=== PATIENT | male | born 1935 | race Caucasian/White ===

== ENCOUNTER 2017-01-29 21:26 | Inpatient (IN) | payer MEDICARE ==
[2017-01-29] MEDS ORDERED: Haloperidol Lactate 5 mg/mL 1mL Vial IM PRN (21:45)
[2017-01-29] MEDS ORDERED: Haloperidol Lactate 5 mg/mL 1mL Vial ONE (21:56)
[2017-01-29 22:12] LABS: % EOSINOPHILS 1.7 % (0.0-5.0); % LYMPHOCYTES 20.8 % (20.0-50.0); % MONOCYTES 6.9 % (2.0-10.0); % NEUTROPHILS 70.6 % (40.0-80.0); HEMATOCRIT 36.8 % (39.0-49.0); HEMOGLOBIN 12.4 gm/dL (12.6-17.4); MEAN CELL VOLUME 91.7 fl (80-99); MEAN CORPUSCULAR HEMOGLOBIN 30.8 pg (27.0-31.0); MEAN CORPUSCULAR HGB CONC 33.6 pg (28.0-36.0); MEAN PLATELET VOLUME 9.8 fl; NEUTROPHILE ABSOLUTE 6.7 Th/cmm (1.8-8.0); PLATELET COUNT 161 Th/cmm (150-400); RED BLOOD COUNT 4.01 Mil/cmm (3.80-5.80); RED CELL DISTRIBUTION WIDTH 14.9 % (11.5-20.0); WHITE BLOOD COUNT 9.6 Th/cmm (4.8-10.8)
[2017-01-29 22:28] LABS: ALB/GLOB RATIO 1.2 (1.0-1.8); ALKALINE PHOSPHATASE 48 U/L (34-104); ANION GAP 10.9 (7.0-16.0); BILIRUBIN,TOTAL 0.6 mg/dL (0.3-1.0); BUN - UREA NITROGEN 29 mg/dL (7-25); BUN/CREATININE RATIO 22.3; CALCIUM SERUM 9.8 mg/dL (8.6-10.3); CARBON DIOXIDE 20.2 mEq/L (21.0-31.0); CHLORIDE 111 mEq/L (98-107); CREATININE - SERUM 1.3 mg/dL (0.7-1.3); GLUCOSE 96 mg/dL (70-105); POTASSIUM SERUM 4.1 mEq/L (3.5-5.1); SGOT 11 U/L (13-39); SGPT/ALT 6 U/L (7-52); SODIUM SERUM 138 mEq/L (136-145)
[2017-01-29 22:29] LABS: INR 1.2 (0.5-1.4); PROTHROMBIN TIME (TEST) 12.6 SECONDS (9.5-11.5)
[2017-01-29 22:32] LABS: CHOLESTEROL 153 mg/dL (<200); TRIGLYCERIDES 80 mg/dL (<150)
[2017-01-29] MEDS ORDERED: D5-0.45NS 1,000 ML IV SCH (22:44)
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
[2017-01-30] MEDS ORDERED: Haloperidol Lactate 5 mg/mL 1mL Vial IM ONE ×2 (00:30→17:27)
[2017-01-30 01:00] VITALS: BP 133/82
[2017-01-30] MEDS ORDERED: Acetaminophen 500 MG TAB PO PRN ×2 (01:18)
[2017-01-30] MEDS ORDERED: Magnesium Hydroxide (MOM) 30 mL UDC PO PRN (01:18)
[2017-01-30] MEDS ORDERED: ARMODAFINIL PO SCH (09:00)
[2017-01-30] MEDS ORDERED: Non-Formulary Item 1 EA (Potassium Chloride [Potassium Chloride] 1 CAP) PO SCH (09:00)
[2017-01-30] MEDS ORDERED: MEGESTROL ACETATE PO SCH (09:00)
--- NOTE | 2017-01-30 09:17 | Diagnostic Imaging Report ---
Portable chest x-ray Time: 2330 History: Cough Allowing for portable technique the heart size is normal. No focal pulmonary parenchymal processes. No hilar or mediastinal abnormalities. Impression: No acute abnormalities.
[2017-01-30] MEDS: Potassium Chloride 10 mEq ER Tab PO SCH ×2 (09:40→16:34)
[2017-01-30] MEDS: Pantoprazole 40 mg EC Tab PO SCH (09:41)
[2017-01-30] MEDS: Multivitamin Tab PO SCH (09:41)
--- NOTE | 2017-01-30 11:03 | Psychosocial Evaluation ---
DATE OF SERVICE: 01/30/2017 JUSTIFICATION FOR HOSPITALIZATION: [facility], yelling, uncooperative from the nursing facility, unable to be cared for there, agitation, aggressive behaviors, uncontrollable crying. CHIEF COMPLAINT: Decompensation at [facility]. HISTORY OF PRESENT ILLNESS: An 81-year-old male coming in from [facility], agitated, aggressive, uncontrollable crying and striking out behaviors, totally uncooperative with staff. Medications were reviewed. He takes Seroquel, Ativan, BuSpar, trazodone, Remeron. On [id number], the patient is completely refusing interview, not talking to me, uncooperative. PAST PSYCHIATRIC HISTORY: It is unclear. He may have a diagnosis of dementia. MEDICAL HISTORY: Hypertension, CAD, dyslipidemia, and arthritis. FAMILY HISTORY: Unknown. SOCIAL HISTORY: Living at [facility]. Requiring a higher level of care. Nonsmoker, no alcohol, no drugs. MEDICATIONS: Reviewed and as noted. MENTAL STATUS EXAMINATION: Stated age, in bed, under the covers, refusing to talk to me. Speech: Refusing to talk to me. Mood, refusing Affect flat. Thought processes were unclear. Thought content, unclear. Poor insight, poor judgment, poor impulse control. PROVISIONAL DIAGNOSES: Rule out dementia, also psychosis, unspecified; mood, unspecified; anxiety, unspecified. MEDICAL: As noted. ESTIMATED LENGTH OF STAY: 5-7 days. ASSESSMENT: The patient requiring inpatient hospitalization, aggressive, agitated, striking out behaviors, refusing interview, confrontational, also ___with__ mood and crying episodes. PLAN: We will restart medications for now, try to increase collateral. TREATMENT PLAN: Includes group as well as milieu therapy. CONDITIONS FOR DISCHARGE: Improved mood, improved affect, cessation of any SI, better control of his aggressive behaviors. JOB# [id number] DRAKE
[2017-01-30] MEDS ORDERED: Haloperidol Lactate 5 mg/mL 1mL Vial ONE (17:26)
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
[2017-01-30] MEDS: Ferrous Sulfate 325 MG TAB PO SCH (21:29)
--- NOTE | 2017-01-30 23:28 | Admit Criteria Form ---
Admit Criteria Forms - Admit Criteria Diagnosis: PSYCHIATRIC DISORDERS (Place 'X' for any and all applicable criteria): Ongoing inpatient care may be needed for 1 or more of the following(1)(2)(3)(4)( 6)(7)(8): [ ]I. Danger to self or others not manageable at lower level of care. [ ]II. Grave disability (eg, inability to perform self care necessary at lower level of care) [ ]III. Agitation or inappropriate behavior interfering with care for primary condition (eg, attempting to discontinue lines or drains prematurely, unable to cooperate with respiratory care) [X ]IV. Severe disability or disorder indicated by ALL of the following: [X ]a) Severe behavioral health disorder-related symptoms or condition indicated by 1 or more of the following: [ ]i) Severe problem with cognition, memory, judgment, or impulse control [X ]ii) Severe clinical manifestations (eg, hallucinations , delusions, other acute psychotic symptoms, arjun, extreme agitation or anxiety) [X ]b) Patient management at lower level of care is not feasible until acute intervention or modification is initiated. Extended stay beyond goal length of stay for the primary condition may be needed until ALLof the following are present(1)(2)(3)(4)(7)54)(23): [ ]a) Danger to self or others is absent or manageable at lower level of care [ ]b) Behavior crisis management, including physical or chemical restraints, is required and is not available at a lower level of care. [ ]c) Behavioral symptoms (e.g., agitation, somnolence, inappropriate behavior) are present, and are not manageable at a lower level of care. [ ]d) Patient cannot understand follow-up treatment and crisis plan. [ ]e) Provider and supports are sufficiently available at lower level of care. [ ]f) Patient can participate (e.g., verify absence of plan for harm) and is in needed of monitoring. The original [facility] content created by [facility] has been revised. The portions of the content which have been revised are identified through the use of italic text or in bold, and [facility] has neither reviewed nor approved the modified material. All other unmodified content is copyright [facility]. Please see references footnoted in the original [facility] edition 2017 Admit Criteria Met?: Yes
[2017-01-31] MEDS: Multivitamin Tab PO SCH (09:23)
[2017-01-31] MEDS: Potassium Chloride 10 mEq ER Tab PO SCH ×3 (09:23→19:29)
[2017-01-31] MEDS: Pantoprazole 40 mg EC Tab PO SCH (09:23)
--- NOTE | 2017-01-31 20:27 | Progress Notes ---
DATE: 01/31/2017 SUBJECTIVE: The patient seen, chart reviewed, discussed with staff. The [facility] is currently in the [facility], yelling, uncooperative, unable to be cared for, agitated, aggressive uncontrollable, crying, trying to get out of bed, taking off his clothes, yelling, screaming nonsensically. The patient is still currently in bed and trying to take off his clothes, and is confused and has no idea why he is here, stating "I am going on here because my illness" coming from [place]. ASSESSMENT: The patient remains restless, still agitated, yelling at times, bizarre behaviors, trying to take his clothes, and generally confused and disoriented. PLAN: Continue to monitor given the severity of the patient's symptoms and his ongoing symptoms, he is not safe for discharge at this time. We will continue medications at current dose, but he will likely need dose adjustments over the next few days. [facility]# [id number]
[2017-01-31] MEDS: Ferrous Sulfate 325 MG TAB PO SCH (21:14)
[2017-02-01] MEDS: Potassium Chloride 10 mEq ER Tab PO SCH ×2 (10:23→18:04)
[2017-02-01] MEDS: Pantoprazole 40 mg EC Tab PO SCH (10:24)
[2017-02-01] MEDS: Multivitamin Tab PO SCH (10:24)
--- NOTE | 2017-02-01 13:33 | General Progress Note ---
Subjective - Review of Systems Service Date: 02/01/17 Subjective: Confused Objective - Results Result Diagrams: 01/29/17 22:04 01/29/17 22:04 Recent Labs: Laboratory Last Values WBC 9.6 Th/cmm (4.8-10.8) 01/29/17 22:04 RBC 4.01 Mil/cmm (3.80-5.80) 01/29/17 22:04 Hgb 12.4 gm/dL (12.6-17.4) L 01/29/17 22:04 Hct 36.8 % (39.0-49.0) L 01/29/17 22:04 MCV 91.7 fl (80-99) 01/29/17 22:04 MCH 30.8 pg (27.0-31.0) 01/29/17 22:04 MCHC Differential 33.6 pg (28.0-36.0) 01/29/17 22:04 RDW 14.9 % (11.5-20.0) 01/29/17 22:04 Plt Count 161 Th/cmm (150-400) 01/29/17 22:04 MPV 9.8 fl 01/29/17 22:04 Neutrophils % 70.6 % (40.0-80.0) 01/29/17 22:04 Lymphocytes % 20.8 % (20.0-50.0) 01/29/17 22:04 Monocytes % 6.9 % (2.0-10.0) 01/29/17 22:04 Eosinophils % 1.7 % (0.0-5.0) 01/29/17 22:04 Basophils % 0.0 % (0.0-2.0) 01/29/17 22:04 PT 12.6 SECONDS (9.5-11.5) H 01/29/17 21:04 INR 1.20 (0.5-1.4) 01/29/17 21:04 PTT (Actin FS) 24.5 SECONDS (26.0-38.0) L 01/29/17 21:04 Sodium 138 mEq/L (136-145) 01/29/17 22:04 Potassium 4.1 mEq/L (3.5-5.1) 01/29/17 22:04 Chloride 111 mEq/L (98-107) H 01/29/17 22:04 Carbon Dioxide 20.2 mEq/L (21.0-31.0) L 01/29/17 22:04 Anion Gap 10.9 (7.0-16.0) 01/29/17 22:04 BUN 29 mg/dL (7-25) H 01/29/17 22:04 Creatinine 1.3 mg/dL (0.7-1.3) 01/29/17 22:04 Est GFR ( Amer) TNP 01/29/17 22:04 Est GFR (Non-Af Amer) TNP 01/29/17 22:04 BUN/Creatinine Ratio 22.3 01/29/17 22:04 Glucose 96 mg/dL (70-105) 01/29/17 22:04 Calcium 9.8 mg/dL (8.6-10.3) 01/29/17 22:04 Total Bilirubin 0.6 mg/dL (0.3-1.0) 01/29/17 22:04 AST 11 U/L (13-39) L 01/29/17 22:04 ALT 6 U/L (7-52) L 01/29/17 22:04 Alkaline Phosphatase 48 U/L (34-104) 01/29/17 22:04 Troponin I 0.01 ng/mL (0.01-0.05) 01/29/17 22:04 Total Protein 6.9 gm/dL (6.0-8.3) 01/29/17 22:04 Albumin 3.7 gm/dL (4.2-5.5) L 01/29/17 22:04 Globulin 3.2 gm/dL 01/29/17 22:04 Albumin/Globulin Ratio 1.2 (1.0-1.8) 01/29/17 22:04 Triglycerides 80 mg/dL (<150) 01/29/17 21:04 Cholesterol 153 mg/dL (<200) 01/29/17 21:04 LDL Cholesterol Direct 126 mg/dL (75-193) 01/29/17 21:04 HDL Cholesterol 30 mg/dL (23-92) 01/29/17 21:04 TSH 1.53 uIU/ml (0.34-5.60) 01/29/17 22:04 RPR NONREACTIVE (NONREACTIVE) 01/29/17 22:04 - Physical Exam Vitals and I&O: Vital Signs Temp 98.3 F 02/01/17 06:46 Pulse 97 02/01/17 10:22 Resp 19 02/01/17 06:46 BP 135/81 02/01/17 10:22 Pulse Ox 99 02/01/17 06:46 Intake & Output 01/31/17 02/01/17 02/01/17 18:59 06:59 18:59 Intake Total 400 120 Balance 400 120 Intake: Oral 400 120 Other: # Voids 3 3 # Bowel Movements 1 0 Stool Characteristics Soft Brown Active Medications: Current Medications Acetaminophen (Tylenol) 650 mg PO Q4HR PRN PRN Reason: Pain (Moderate) Stop: 03/31/17 01:17 Acetaminophen (Tylenol Extra Strength) 500 mg PO Q4HR PRN PRN Reason: Pain (Mild) Stop: 03/31/17 01:17 Acetaminophen (Tylenol Extra Strength) 1,000 mg PO Q4HR PRN PRN Reason: Pain (Severe) Stop: 03/31/17 01:17 Buspirone HCl (Buspar) 10 mg PO BID PRN PRN Reason: Anxiety Last Admin: 01/31/17 09:23 Dose: 10 mg Docusate Sodium (Colace) 250 mg PO BID [facility] Stop: 03/31/17 08:59 Last Admin: 02/01/17 10:22 Dose: Not Given Ferrous Sulfate (Iron) 325 mg PO HS [facility] Stop: 03/31/17 20:59 Last Admin: 01/31/17 21:14 Dose: 325 mg Labetalol HCl (Trandate) 100 mg PO BID [facility] Stop: 03/31/17 08:59 Last Admin: 02/01/17 10:22 Dose: Not Given Levetiracetam (Keppra) 1,000 mg PO BID [facility] Stop: 03/31/17 08:59 Last Admin: 02/01/17 10:22 Dose: Not Given Lorazepam (Ativan) 1 mg PO TID PRN; Protocol PRN Reason: Agitation Stop: 03/31/17 01:17 Last Admin: 02/01/17 01:46 Dose: 1 mg Magnesium Hydroxide (Milk Of Magnesia) 30 ml PO DAILY PRN PRN Reason: Constipation Stop: 03/31/17 01:17 Megestrol Acetate (Megace) 400 mg PO BID [facility] Stop: 03/31/17 08:59 Last Admin: 02/01/17 10:24 Dose: Not Given Mirtazapine (Remeron) 15 mg PO HS [facility] PRN Reason: Protocol Stop: 03/31/17 20:59 Last Admin: 01/31/17 21:15 Dose: 15 mg Miscellaneous (Armodafinil [Armodafinil]) 1 tab PO DAILY [facility] Stop: 03/31/17 08:59 Multivitamins/Vitamin C (Theragran) 1 tab PO DAILY [facility] Stop: 03/31/17 08:59 Last Admin: 02/01/17 10:24 Dose: Not Given Pantoprazole Sodium (Protonix) 40 mg PO DAILY [facility] Stop: 03/31/17 08:59 Last Admin: 02/01/17 10:24 Dose: Not Given Potassium Chloride (Klor-Con) 10 meq PO BID [facility] Stop: 03/31/17 08:59 Last Admin: 02/01/17 10:23 Dose: Not Given Quetiapine Fumarate (Seroquel) 50 mg PO BID [facility] PRN Reason: Protocol Stop: 03/31/17 08:59 Last Admin: 02/01/17 10:22 Dose: Not Given Trazodone HCl (Desyrel) 150 mg PO HS [facility] Stop: 03/31/17 20:59 Last Admin: 01/31/17 21:14 Dose: 150 mg General: Other (Sleeping but arousable) HEENT: Atraumatic, PERRLA Cardiovascular: Regular rate Lungs: Clear to auscultation Abdomen: Bowel sounds, Soft Extremities: Other (No edema) Neurological: Other (unstable gait) Skin: Other (dry and warm) Psych/Mental Status: Other (Confused, not oriented) Assessment/Plan - Assessment Assessment: Patient is sleeping but arousable, in no acute distress. - Plan Plan: Continue with psychiatric care.
[2017-02-01] MEDS: Ferrous Sulfate 325 MG TAB PO SCH (21:42)
--- NOTE | 2017-02-02 01:30 | Progress Notes ---
DATE: 02/01/2017 SUBJECTIVE: Case was discussed with staff of the patient, reviewed records. I also talked to his who happened to be there. [facility] reported that at [facility] were not watching him and she wants him to go home. She said she is working on getting a sitter for him. The patient is still not able to participate in a meaningful conversation. said he is hard of hearing. The patient is still easily agitated, unpredictable, and impulsive. He is on Remeron 50 mg at bedtime, multivitamin, Seroquel 50 mg twice a day, trazodone 150 mg at bedtime, BuSpar 10 mg twice a day as needed, with no side effects, no sedation, no nausea, no extrapyramidal symptoms. We will continue to work with the patient in group therapy, milieu therapy, and adjust medication as needed. JOB# [id number]
--- NOTE | 2017-02-02 08:59 | General Progress Note ---
Subjective - Review of Systems Service Date: 02/02/17 Subjective: Confused Objective - Results Result Diagrams: 01/29/17 22:04 01/29/17 22:04 Recent Labs: Laboratory Last Values WBC 9.6 Th/cmm (4.8-10.8) 01/29/17 22:04 RBC 4.01 Mil/cmm (3.80-5.80) 01/29/17 22:04 Hgb 12.4 gm/dL (12.6-17.4) L 01/29/17 22:04 Hct 36.8 % (39.0-49.0) L 01/29/17 22:04 MCV 91.7 fl (80-99) 01/29/17 22:04 MCH 30.8 pg (27.0-31.0) 01/29/17 22:04 MCHC Differential 33.6 pg (28.0-36.0) 01/29/17 22:04 RDW 14.9 % (11.5-20.0) 01/29/17 22:04 Plt Count 161 Th/cmm (150-400) 01/29/17 22:04 MPV 9.8 fl 01/29/17 22:04 Neutrophils % 70.6 % (40.0-80.0) 01/29/17 22:04 Lymphocytes % 20.8 % (20.0-50.0) 01/29/17 22:04 Monocytes % 6.9 % (2.0-10.0) 01/29/17 22:04 Eosinophils % 1.7 % (0.0-5.0) 01/29/17 22:04 Basophils % 0.0 % (0.0-2.0) 01/29/17 22:04 PT 12.6 SECONDS (9.5-11.5) H 01/29/17 21:04 INR 1.20 (0.5-1.4) 01/29/17 21:04 PTT (Actin FS) 24.5 SECONDS (26.0-38.0) L 01/29/17 21:04 Sodium 138 mEq/L (136-145) 01/29/17 22:04 Potassium 4.1 mEq/L (3.5-5.1) 01/29/17 22:04 Chloride 111 mEq/L (98-107) H 01/29/17 22:04 Carbon Dioxide 20.2 mEq/L (21.0-31.0) L 01/29/17 22:04 Anion Gap 10.9 (7.0-16.0) 01/29/17 22:04 BUN 29 mg/dL (7-25) H 01/29/17 22:04 Creatinine 1.3 mg/dL (0.7-1.3) 01/29/17 22:04 Est GFR ( Amer) TNP 01/29/17 22:04 Est GFR (Non-Af Amer) TNP 01/29/17 22:04 BUN/Creatinine Ratio 22.3 01/29/17 22:04 Glucose 96 mg/dL (70-105) 01/29/17 22:04 Calcium 9.8 mg/dL (8.6-10.3) 01/29/17 22:04 Total Bilirubin 0.6 mg/dL (0.3-1.0) 01/29/17 22:04 AST 11 U/L (13-39) L 01/29/17 22:04 ALT 6 U/L (7-52) L 01/29/17 22:04 Alkaline Phosphatase 48 U/L (34-104) 01/29/17 22:04 Troponin I 0.01 ng/mL (0.01-0.05) 01/29/17 22:04 Total Protein 6.9 gm/dL (6.0-8.3) 01/29/17 22:04 Albumin 3.7 gm/dL (4.2-5.5) L 01/29/17 22:04 Globulin 3.2 gm/dL 01/29/17 22:04 Albumin/Globulin Ratio 1.2 (1.0-1.8) 01/29/17 22:04 Triglycerides 80 mg/dL (<150) 01/29/17 21:04 Cholesterol 153 mg/dL (<200) 01/29/17 21:04 LDL Cholesterol Direct 126 mg/dL (75-193) 01/29/17 21:04 HDL Cholesterol 30 mg/dL (23-92) 01/29/17 21:04 TSH 1.53 uIU/ml (0.34-5.60) 01/29/17 22:04 RPR NONREACTIVE (NONREACTIVE) 01/29/17 22:04 - Physical Exam Vitals and I&O: Vital Signs Temp 98.4 F 02/02/17 07:13 Pulse 96 02/02/17 07:13 Resp 19 02/02/17 07:13 BP 135/81 02/02/17 07:13 Pulse Ox 97 02/02/17 07:13 Intake & Output 02/01/17 02/02/17 02/02/17 18:59 06:59 18:59 Intake Total 240 240 Output Total 2 Balance 240 238 Intake: Oral 240 240 Output: Urine 1 Stool 1 Other: # Voids 1 Active Medications: Current Medications Acetaminophen (Tylenol) 650 mg PO Q4HR PRN PRN Reason: Pain (Moderate) Stop: 03/31/17 01:17 Acetaminophen (Tylenol Extra Strength) 500 mg PO Q4HR PRN PRN Reason: Pain (Mild) Stop: 03/31/17 01:17 Acetaminophen (Tylenol Extra Strength) 1,000 mg PO Q4HR PRN PRN Reason: Pain (Severe) Stop: 03/31/17 01:17 Buspirone HCl (Buspar) 10 mg PO BID PRN PRN Reason: Anxiety Last Admin: 01/31/17 09:23 Dose: 10 mg Docusate Sodium (Colace) 250 mg PO BID [facility] Stop: 03/31/17 08:59 Last Admin: 02/01/17 18:05 Dose: Not Given Ferrous Sulfate (Iron) 325 mg PO HS [facility] Stop: 03/31/17 20:59 Last Admin: 02/01/17 21:42 Dose: Not Given Labetalol HCl (Trandate) 100 mg PO BID [facility] Stop: 03/31/17 08:59 Last Admin: 02/01/17 18:05 Dose: Not Given Levetiracetam (Keppra) 1,000 mg PO BID [facility] Stop: 03/31/17 08:59 Last Admin: 02/01/17 18:04 Dose: 1,000 mg Lorazepam (Ativan) 1 mg PO TID PRN; Protocol PRN Reason: Agitation Stop: 03/31/17 01:17 Last Admin: 02/01/17 18:04 Dose: 1 mg Magnesium Hydroxide (Milk Of Magnesia) 30 ml PO DAILY PRN PRN Reason: Constipation Stop: 03/31/17 01:17 Megestrol Acetate (Megace) 400 mg PO BID [facility] Stop: 03/31/17 08:59 Last Admin: 02/01/17 18:06 Dose: Not Given Mirtazapine (Remeron) 15 mg PO HS [facility] PRN Reason: Protocol Stop: 03/31/17 20:59 Last Admin: 02/01/17 21:42 Dose: Not Given Miscellaneous (Armodafinil [Armodafinil]) 1 tab PO DAILY [facility] Stop: 03/31/17 08:59 Multivitamins/Vitamin C (Theragran) 1 tab PO DAILY [facility] Stop: 03/31/17 08:59 Last Admin: 02/01/17 10:24 Dose: Not Given Pantoprazole Sodium (Protonix) 40 mg PO DAILY [facility] Stop: 03/31/17 08:59 Last Admin: 02/01/17 10:24 Dose: Not Given Potassium Chloride (Klor-Con) 10 meq PO BID [facility] Stop: 03/31/17 08:59 Last Admin: 02/01/17 18:04 Dose: 10 meq Quetiapine Fumarate (Seroquel) 50 mg PO BID [facility] PRN Reason: Protocol Stop: 03/31/17 08:59 Last Admin: 02/01/17 18:05 Dose: 50 mg Trazodone HCl (Desyrel) 150 mg PO HS [facility] Stop: 03/31/17 20:59 Last Admin: 02/01/17 21:42 Dose: Not Given General: Other (Sleeping but arousable) HEENT: Atraumatic, PERRLA Neck: Supple Cardiovascular: Regular rate Lungs: Clear to auscultation Abdomen: Bowel sounds, Soft Extremities: Other (No edema) Neurological: Other (unstable gait) Skin: Other (dry and warm) Psych/Mental Status: Other (Confused, not oriented) Assessment/Plan - Assessment Assessment: Patient is sleeping but arousable, in no acute distress. But nurse report he is refusing meds. - Plan Plan: Continue with psychiatric care. Will continue to monitor.
[2017-02-02] MEDS: Pantoprazole 40 mg EC Tab PO SCH (09:02)
[2017-02-02] MEDS: Potassium Chloride 10 mEq ER Tab PO SCH ×2 (09:02→17:07)
[2017-02-02] MEDS: Multivitamin Tab PO SCH (09:02)
[2017-02-02] MEDS ORDERED: Haloperidol Lactate 5 mg/mL 1mL Vial ONE (12:38)
[2017-02-02] MEDS ORDERED: Haloperidol Lactate 5 mg/mL 1mL Vial IM ONE (12:39)
[2017-02-02] MEDS: Ferrous Sulfate 325 MG TAB PO SCH (20:32)
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
[2017-02-03] MEDS: Multivitamin Tab PO SCH (09:15)
[2017-02-03] MEDS: Potassium Chloride 10 mEq ER Tab PO SCH ×2 (09:15→17:07)
[2017-02-03] MEDS: Pantoprazole 40 mg EC Tab PO SCH (09:16)
--- NOTE | 2017-02-03 09:46 | General Progress Note ---
Subjective - Review of Systems Service Date: 02/03/17 Subjective: Confused Objective - Results Result Diagrams: 01/29/17 22:04 01/29/17 22:04 Recent Labs: Laboratory Last Values WBC 9.6 Th/cmm (4.8-10.8) 01/29/17 22:04 RBC 4.01 Mil/cmm (3.80-5.80) 01/29/17 22:04 Hgb 12.4 gm/dL (12.6-17.4) L 01/29/17 22:04 Hct 36.8 % (39.0-49.0) L 01/29/17 22:04 MCV 91.7 fl (80-99) 01/29/17 22:04 MCH 30.8 pg (27.0-31.0) 01/29/17 22:04 MCHC Differential 33.6 pg (28.0-36.0) 01/29/17 22:04 RDW 14.9 % (11.5-20.0) 01/29/17 22:04 Plt Count 161 Th/cmm (150-400) 01/29/17 22:04 MPV 9.8 fl 01/29/17 22:04 Neutrophils % 70.6 % (40.0-80.0) 01/29/17 22:04 Lymphocytes % 20.8 % (20.0-50.0) 01/29/17 22:04 Monocytes % 6.9 % (2.0-10.0) 01/29/17 22:04 Eosinophils % 1.7 % (0.0-5.0) 01/29/17 22:04 Basophils % 0.0 % (0.0-2.0) 01/29/17 22:04 PT 12.6 SECONDS (9.5-11.5) H 01/29/17 21:04 INR 1.20 (0.5-1.4) 01/29/17 21:04 PTT (Actin FS) 24.5 SECONDS (26.0-38.0) L 01/29/17 21:04 Sodium 138 mEq/L (136-145) 01/29/17 22:04 Potassium 4.1 mEq/L (3.5-5.1) 01/29/17 22:04 Chloride 111 mEq/L (98-107) H 01/29/17 22:04 Carbon Dioxide 20.2 mEq/L (21.0-31.0) L 01/29/17 22:04 Anion Gap 10.9 (7.0-16.0) 01/29/17 22:04 BUN 29 mg/dL (7-25) H 01/29/17 22:04 Creatinine 1.3 mg/dL (0.7-1.3) 01/29/17 22:04 Est GFR ( Amer) TNP 01/29/17 22:04 Est GFR (Non-Af Amer) TNP 01/29/17 22:04 BUN/Creatinine Ratio 22.3 01/29/17 22:04 Glucose 96 mg/dL (70-105) 01/29/17 22:04 Calcium 9.8 mg/dL (8.6-10.3) 01/29/17 22:04 Total Bilirubin 0.6 mg/dL (0.3-1.0) 01/29/17 22:04 AST 11 U/L (13-39) L 01/29/17 22:04 ALT 6 U/L (7-52) L 01/29/17 22:04 Alkaline Phosphatase 48 U/L (34-104) 01/29/17 22:04 Troponin I 0.01 ng/mL (0.01-0.05) 01/29/17 22:04 Total Protein 6.9 gm/dL (6.0-8.3) 01/29/17 22:04 Albumin 3.7 gm/dL (4.2-5.5) L 01/29/17 22:04 Globulin 3.2 gm/dL 01/29/17 22:04 Albumin/Globulin Ratio 1.2 (1.0-1.8) 01/29/17 22:04 Triglycerides 80 mg/dL (<150) 01/29/17 21:04 Cholesterol 153 mg/dL (<200) 01/29/17 21:04 LDL Cholesterol Direct 126 mg/dL (75-193) 01/29/17 21:04 HDL Cholesterol 30 mg/dL (23-92) 01/29/17 21:04 TSH 1.53 uIU/ml (0.34-5.60) 01/29/17 22:04 RPR NONREACTIVE (NONREACTIVE) 01/29/17 22:04 - Physical Exam Vitals and I&O: Vital Signs Temp 98.1 F 02/03/17 06:10 Pulse 86 02/03/17 06:10 Resp 19 02/03/17 06:10 BP 150/85 02/03/17 06:10 Pulse Ox 94 02/03/17 05:00 Intake & Output 02/02/17 02/03/17 02/03/17 18:59 06:59 18:59 Intake Total 840 420 Output Total 2 Balance 838 420 Intake: Oral 840 420 Output: Urine 1 Stool 1 Other: # Voids 3 2 # Bowel Movements 0 1 Active Medications: Current Medications Acetaminophen (Tylenol) 650 mg PO Q4HR PRN PRN Reason: Pain (Moderate) Stop: 03/31/17 01:17 Acetaminophen (Tylenol Extra Strength) 500 mg PO Q4HR PRN PRN Reason: Pain (Mild) Stop: 03/31/17 01:17 Acetaminophen (Tylenol Extra Strength) 1,000 mg PO Q4HR PRN PRN Reason: Pain (Severe) Stop: 03/31/17 01:17 Buspirone HCl (Buspar) 10 mg PO BID PRN PRN Reason: Anxiety Last Admin: 01/31/17 09:23 Dose: 10 mg Docusate Sodium (Colace) 250 mg PO BID [facility] Stop: 03/31/17 08:59 Last Admin: 02/02/17 17:07 Dose: Not Given Ferrous Sulfate (Iron) 325 mg PO HS [facility] Stop: 03/31/17 20:59 Last Admin: 02/02/17 20:32 Dose: 325 mg Labetalol HCl (Trandate) 100 mg PO BID [facility] Stop: 03/31/17 08:59 Last Admin: 02/02/17 17:07 Dose: Not Given Levetiracetam (Keppra) 1,000 mg PO BID [facility] Stop: 03/31/17 08:59 Last Admin: 02/02/17 17:07 Dose: Not Given Lorazepam (Ativan) 1 mg PO TID PRN; Protocol PRN Reason: Agitation Stop: 03/31/17 01:17 Last Admin: 02/01/17 18:04 Dose: 1 mg Magnesium Hydroxide (Milk Of Magnesia) 30 ml PO DAILY PRN PRN Reason: Constipation Stop: 03/31/17 01:17 Megestrol Acetate (Megace) 400 mg PO BID [facility] Stop: 03/31/17 08:59 Last Admin: 02/02/17 17:07 Dose: Not Given Mirtazapine (Remeron) 15 mg PO HS [facility] PRN Reason: Protocol Stop: 03/31/17 20:59 Last Admin: 02/02/17 20:32 Dose: 15 mg Miscellaneous (Armodafinil [Armodafinil]) 1 tab PO DAILY [facility] Stop: 03/31/17 08:59 Multivitamins/Vitamin C (Theragran) 1 tab PO DAILY [facility] Stop: 03/31/17 08:59 Last Admin: 02/02/17 09:02 Dose: Not Given Pantoprazole Sodium (Protonix) 40 mg PO DAILY [facility] Stop: 03/31/17 08:59 Last Admin: 02/02/17 09:02 Dose: Not Given Potassium Chloride (Klor-Con) 10 meq PO BID [facility] Stop: 03/31/17 08:59 Last Admin: 02/02/17 17:07 Dose: Not Given Quetiapine Fumarate (Seroquel) 50 mg PO BID [facility] PRN Reason: Protocol Stop: 03/31/17 08:59 Last Admin: 02/02/17 17:07 Dose: Not Given Trazodone HCl (Desyrel) 150 mg PO HS [facility] Stop: 03/31/17 20:59 Last Admin: 02/02/17 20:32 Dose: 150 mg General: Other (Sleeping but arousable) HEENT: Atraumatic, PERRLA Neck: Supple Cardiovascular: Regular rate Lungs: Clear to auscultation Abdomen: Bowel sounds, Soft Extremities: Other (No edema) Neurological: Other (unstable gait) Skin: Other (dry and warm) Psych/Mental Status: Other (Confused, not oriented) Assessment/Plan - Assessment Assessment: Patient is sleeping but arousable, in no acute distress. Patient took his meds last night. - Plan Plan: Continue with psychiatric care. Will continue to monitor.
--- NOTE | 2017-02-03 13:47 | Diagnostic Imaging Report ---
Thoracic spine 2 views Indication: Fracture Comparison: none Findings: Rightward convex scoliosis of the thoracic spine is noted. Extensive degenerative changes are seen with multilevel marginal osteophytic spurring and minimal chronic loss of height of 2 adjacent mid thoracic vertebral bodies, level is difficult to determine. No evidence of subluxation. Gaseous distention of the stomach. Impression: Minimal loss of height of 2 adjacent mid thoracic vertebral bodies which appear to be chronic. No evidence of an acute compression fracture or subluxation. If clinically indicated follow up CT or MRI may also be obtained for further assessment Advanced degenerative changes. Spinal scoliosis. In the setting of trauma, if clinical symptoms persist and there is continued concern for an occult fracture, follow up exams in 5-7 days is suggested.
[2017-02-03] MEDS: Ferrous Sulfate 325 MG TAB PO SCH (21:17)
--- NOTE | 2017-02-03 21:52 | Progress Notes ---
DATE: 02/03/2017 SUBJECTIVE: Chart reviewed and the patient interviewed. Also discussed the patient's condition with the staff and reviewed records and labs. The patient is still agitated and he still has episodes of yelling and screaming. The patient also is confused and he is calling his . The patient also is still depressed ____ and wants to be left alone. Otherwise, the patient is interacting minimally with others. During interview, the patient is depressed and is confused. The patient also has poor eye contact with low tone and rate of speech. He also is easily agitated and also during interview, he has episodes of yelling and screaming. Also, personal hygiene is poor. 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 TREATMENT PLAN: We will discontinue Cymbalta because the patient is on Remeron and we will adjust the ____ dose. Also, we will continue BuSpar. Also, we will work on his severe depression and his anxiety and we will continue to follow up. JOB# [id number]
[2017-02-04] MEDS: Multivitamin Tab PO SCH (09:26)
[2017-02-04] MEDS: Pantoprazole 40 mg EC Tab PO SCH (09:26)
[2017-02-04] MEDS: Potassium Chloride 10 mEq ER Tab PO SCH ×2 (09:27→16:51)
--- NOTE | 2017-02-04 12:52 | General Progress Note ---
Subjective - Review of Systems Service Date: 02/04/17 Subjective: Confused Objective - Results Result Diagrams: 01/29/17 22:04 01/29/17 22:04 Recent Labs: Laboratory Last Values WBC 9.6 Th/cmm (4.8-10.8) 01/29/17 22:04 RBC 4.01 Mil/cmm (3.80-5.80) 01/29/17 22:04 Hgb 12.4 gm/dL (12.6-17.4) L 01/29/17 22:04 Hct 36.8 % (39.0-49.0) L 01/29/17 22:04 MCV 91.7 fl (80-99) 01/29/17 22:04 MCH 30.8 pg (27.0-31.0) 01/29/17 22:04 MCHC Differential 33.6 pg (28.0-36.0) 01/29/17 22:04 RDW 14.9 % (11.5-20.0) 01/29/17 22:04 Plt Count 161 Th/cmm (150-400) 01/29/17 22:04 MPV 9.8 fl 01/29/17 22:04 Neutrophils % 70.6 % (40.0-80.0) 01/29/17 22:04 Lymphocytes % 20.8 % (20.0-50.0) 01/29/17 22:04 Monocytes % 6.9 % (2.0-10.0) 01/29/17 22:04 Eosinophils % 1.7 % (0.0-5.0) 01/29/17 22:04 Basophils % 0.0 % (0.0-2.0) 01/29/17 22:04 PT 12.6 SECONDS (9.5-11.5) H 01/29/17 21:04 INR 1.20 (0.5-1.4) 01/29/17 21:04 PTT (Actin FS) 24.5 SECONDS (26.0-38.0) L 01/29/17 21:04 Sodium 138 mEq/L (136-145) 01/29/17 22:04 Potassium 4.1 mEq/L (3.5-5.1) 01/29/17 22:04 Chloride 111 mEq/L (98-107) H 01/29/17 22:04 Carbon Dioxide 20.2 mEq/L (21.0-31.0) L 01/29/17 22:04 Anion Gap 10.9 (7.0-16.0) 01/29/17 22:04 BUN 29 mg/dL (7-25) H 01/29/17 22:04 Creatinine 1.3 mg/dL (0.7-1.3) 01/29/17 22:04 Est GFR ( Amer) TNP 01/29/17 22:04 Est GFR (Non-Af Amer) TNP 01/29/17 22:04 BUN/Creatinine Ratio 22.3 01/29/17 22:04 Glucose 96 mg/dL (70-105) 01/29/17 22:04 Calcium 9.8 mg/dL (8.6-10.3) 01/29/17 22:04 Total Bilirubin 0.6 mg/dL (0.3-1.0) 01/29/17 22:04 AST 11 U/L (13-39) L 01/29/17 22:04 ALT 6 U/L (7-52) L 01/29/17 22:04 Alkaline Phosphatase 48 U/L (34-104) 01/29/17 22:04 Troponin I 0.01 ng/mL (0.01-0.05) 01/29/17 22:04 Total Protein 6.9 gm/dL (6.0-8.3) 01/29/17 22:04 Albumin 3.7 gm/dL (4.2-5.5) L 01/29/17 22:04 Globulin 3.2 gm/dL 01/29/17 22:04 Albumin/Globulin Ratio 1.2 (1.0-1.8) 01/29/17 22:04 Triglycerides 80 mg/dL (<150) 01/29/17 21:04 Cholesterol 153 mg/dL (<200) 01/29/17 21:04 LDL Cholesterol Direct 126 mg/dL (75-193) 01/29/17 21:04 HDL Cholesterol 30 mg/dL (23-92) 01/29/17 21:04 TSH 1.53 uIU/ml (0.34-5.60) 01/29/17 22:04 RPR NONREACTIVE (NONREACTIVE) 01/29/17 22:04 - Physical Exam Vitals and I&O: Vital Signs Temp 97.9 F 02/04/17 06:42 Pulse 79 02/04/17 11:21 Resp 20 02/04/17 11:21 BP 140/74 02/04/17 09:26 Pulse Ox 98 02/04/17 06:42 Intake & Output 02/03/17 02/04/17 02/04/17 18:59 06:59 18:59 Intake Total 1200 120 Balance 1200 120 Intake: Oral 1200 120 Other: # Voids 3 # Bowel Movements 1 Stool Characteristics Soft Soft Formed Formed Active Medications: Current Medications Acetaminophen (Tylenol) 650 mg PO Q4HR PRN PRN Reason: Pain (Moderate) Stop: 03/31/17 01:17 Acetaminophen (Tylenol Extra Strength) 500 mg PO Q4HR PRN PRN Reason: Pain (Mild) Stop: 03/31/17 01:17 Acetaminophen (Tylenol Extra Strength) 1,000 mg PO Q4HR PRN PRN Reason: Pain (Severe) Stop: 03/31/17 01:17 Buspirone HCl (Buspar) 10 mg PO BID PRN PRN Reason: Anxiety Last Admin: 01/31/17 09:23 Dose: 10 mg Docusate Sodium (Colace) 250 mg PO BID [facility] Stop: 03/31/17 08:59 Last Admin: 02/04/17 09:26 Dose: 250 mg Ferrous Sulfate (Iron) 325 mg PO HS [facility] Stop: 03/31/17 20:59 Last Admin: 02/03/17 21:17 Dose: 325 mg Labetalol HCl (Trandate) 100 mg PO BID [facility] Stop: 03/31/17 08:59 Last Admin: 02/04/17 09:26 Dose: 100 mg Levetiracetam (Keppra) 1,000 mg PO BID [facility] Stop: 03/31/17 08:59 Last Admin: 02/04/17 09:26 Dose: 1,000 mg Lorazepam (Ativan) 1 mg PO TID PRN; Protocol PRN Reason: Agitation Stop: 03/31/17 01:17 Last Admin: 02/03/17 21:17 Dose: 1 mg Magnesium Hydroxide (Milk Of Magnesia) 30 ml PO DAILY PRN PRN Reason: Constipation Stop: 03/31/17 01:17 Megestrol Acetate (Megace) 400 mg PO BID [facility] Stop: 03/31/17 08:59 Last Admin: 02/04/17 09:26 Dose: 400 mg Mirtazapine (Remeron) 15 mg PO [facility] PRN Reason: Protocol Stop: 03/31/17 20:59 Last Admin: 02/03/17 21:17 Dose: 15 mg Modafinil (Provigil) 100 mg PO DAILY [facility] Stop: 04/06/17 08:59 Multivitamins/Vitamin C (Theragran) 1 tab PO DAILY [facility] Stop: 03/31/17 08:59 Last Admin: 02/04/17 09:26 Dose: 1 tab Pantoprazole Sodium (Protonix) 40 mg PO DAILY [facility] Stop: 03/31/17 08:59 Last Admin: 02/04/17 09:26 Dose: 40 mg Potassium Chloride (Klor-Con) 10 meq PO BID [facility] Stop: 03/31/17 08:59 Last Admin: 02/04/17 09:27 Dose: 10 meq Quetiapine Fumarate (Seroquel) 50 mg PO BID [facility] PRN Reason: Protocol Stop: 03/31/17 08:59 Last Admin: 02/04/17 09:25 Dose: 50 mg Trazodone HCl (Desyrel) 150 mg PO HS [facility] Stop: 03/31/17 20:59 Last Admin: 02/03/17 21:15 Dose: 150 mg General: Other (Sleeping but arousable) HEENT: Atraumatic, PERRLA Neck: Supple Cardiovascular: Regular rate Lungs: Clear to auscultation Abdomen: Bowel sounds, Soft Extremities: Other (No edema) Neurological: Other (non ambulatory) Skin: Other (dry and warm) Psych/Mental Status: Other (Confused, not oriented) Assessment/Plan - Assessment Assessment: Patient is sleeping but arousable, in no acute distress. Spine X-ray shows Chronic severe degenerative changes, no acute injuries. - Plan Plan: Continue with psychiatric care. Will continue to monitor.
[2017-02-04 19:00] LABS: % BASOPHILS 1.4 % (0.0-2.0); % EOSINOPHILS 3.2 % (0.0-5.0); % LYMPHOCYTES 34.2 % (20.0-50.0); % NEUTROPHILS 49.2 % (40.0-80.0); HEMOGLOBIN 12.4 gm/dL (12.6-17.4); MEAN CELL VOLUME 91.1 fl (80-99); MEAN CORPUSCULAR HEMOGLOBIN 30.6 pg (27.0-31.0); MEAN CORPUSCULAR HGB CONC 33.5 pg (28.0-36.0); MEAN PLATELET VOLUME 9.1 fl; NEUTROPHILE ABSOLUTE 2.6 Th/cmm (1.8-8.0); PLATELET COUNT 185 Th/cmm (150-400); RED BLOOD COUNT 4.06 Mil/cmm (3.80-5.80); RED CELL DISTRIBUTION WIDTH 14.4 % (11.5-20.0)
[2017-02-04 19:03] LABS: WHITE BLOOD COUNT 5.3 Th/cmm (4.8-10.8)
[2017-02-04 19:13] LABS: ALB/GLOB RATIO 1.2 (1.0-1.8); ALKALINE PHOSPHATASE 50 U/L (34-104); ANION GAP 7.3 (7.0-16.0); BILIRUBIN,TOTAL 0.4 mg/dL (0.3-1.0); BUN - UREA NITROGEN 33 mg/dL (7-25); BUN/CREATININE RATIO 25.4; CALCIUM SERUM 9.6 mg/dL (8.6-10.3); CARBON DIOXIDE 23.6 mEq/L (21.0-31.0); CHLORIDE 112 mEq/L (98-107); CREATININE - SERUM 1.3 mg/dL (0.7-1.3); GLUCOSE 116 mg/dL (70-105); POTASSIUM SERUM 3.9 mEq/L (3.5-5.1); SGOT 15 U/L (13-39); SGPT/ALT 8 U/L (7-52); SODIUM SERUM 139 mEq/L (136-145)
[2017-02-04] MEDS: Ferrous Sulfate 325 MG TAB PO SCH (21:04)
--- NOTE | 2017-02-05 02:13 | Progress Notes ---
DATE: 02/04/2017 SUBJECTIVE: Chart reviewed and the patient interviewed. Also discussed the patient's condition with the staff and reviewed records and labs. Also discussed the condition with the patient's , who was visiting him today, and also I talked to her on the phone yesterday. The patient is still having episodes of yelling and screaming and is still easily agitated and easily irritable. He also still has poor hygiene and poor appetite and still needs close monitoring. The patient also is still unable to follow directions. He still has to be redirected closely. Also, is still yelling and screaming and staff had difficult time quieting him down. On the other hand, the patient continues to comply with taking his medications and his appetite started to improve with Remeron. ASSESSMENT: The patient is still psychotic and agitated. TREATMENT PLAN: Continue monitoring his behavior and his condition closely. Also, continue to work on his poor impulse control and adjusting medications. Also discussed with his treatment plans and the patient's wants the patient to come back home when he is stable and I discussed with her that will be the case and we will send upon discharge. JOB# [id number]
[2017-02-05] MEDS: Pantoprazole 40 mg EC Tab PO SCH (08:16)
[2017-02-05] MEDS: Potassium Chloride 10 mEq ER Tab PO SCH ×2 (08:17→17:06)
[2017-02-05] MEDS: Multivitamin Tab PO SCH (08:17)
--- NOTE | 2017-02-05 08:36 | General Progress Note ---
Subjective - Review of Systems Service Date: 02/05/17 Subjective: Confused Objective - Results Result Diagrams: 02/04/17 18:52 02/04/17 18:52 Recent Labs: Laboratory Last Values WBC 5.3 Th/cmm (4.8-10.8) D 02/04/17 18:52 RBC 4.06 Mil/cmm (3.80-5.80) 02/04/17 18:52 Hgb 12.4 gm/dL (12.6-17.4) L 02/04/17 18:52 Hct 37.0 % (39.0-49.0) L 02/04/17 18:52 MCV 91.1 fl (80-99) 02/04/17 18:52 MCH 30.6 pg (27.0-31.0) 02/04/17 18:52 MCHC Differential 33.5 pg (28.0-36.0) 02/04/17 18:52 RDW 14.4 % (11.5-20.0) 02/04/17 18:52 Plt Count 185 Th/cmm (150-400) 02/04/17 18:52 MPV 9.1 fl 02/04/17 18:52 Neutrophils % 49.2 % (40.0-80.0) 02/04/17 18:52 Lymphocytes % 34.2 % (20.0-50.0) 02/04/17 18:52 Monocytes % 12.0 % (2.0-10.0) H 02/04/17 18:52 Eosinophils % 3.2 % (0.0-5.0) 02/04/17 18:52 Basophils % 1.4 % (0.0-2.0) 02/04/17 18:52 PT 12.6 SECONDS (9.5-11.5) H 01/29/17 21:04 INR 1.20 (0.5-1.4) 01/29/17 21:04 PTT (Actin FS) 24.5 SECONDS (26.0-38.0) L 01/29/17 21:04 Sodium 139 mEq/L (136-145) 02/04/17 18:52 Potassium 3.9 mEq/L (3.5-5.1) 02/04/17 18:52 Chloride 112 mEq/L (98-107) H 02/04/17 18:52 Carbon Dioxide 23.6 mEq/L (21.0-31.0) 02/04/17 18:52 Anion Gap 7.3 (7.0-16.0) 02/04/17 18:52 BUN 33 mg/dL (7-25) H 02/04/17 18:52 Creatinine 1.3 mg/dL (0.7-1.3) 02/04/17 18:52 Est GFR ( Amer) TNP 02/04/17 18:52 Est GFR (Non-Af Amer) TNP 02/04/17 18:52 BUN/Creatinine Ratio 25.4 02/04/17 18:52 Glucose 116 mg/dL (70-105) H 02/04/17 18:52 Calcium 9.6 mg/dL (8.6-10.3) 02/04/17 18:52 Total Bilirubin 0.4 mg/dL (0.3-1.0) 02/04/17 18:52 AST 15 U/L (13-39) 02/04/17 18:52 ALT 8 U/L (7-52) 02/04/17 18:52 Alkaline Phosphatase 50 U/L (34-104) 02/04/17 18:52 Troponin I 0.01 ng/mL (0.01-0.05) 01/29/17 22:04 Total Protein 6.5 gm/dL (6.0-8.3) 02/04/17 18:52 Albumin 3.5 gm/dL (4.2-5.5) L 02/04/17 18:52 Globulin 3.0 gm/dL 02/04/17 18:52 Albumin/Globulin Ratio 1.2 (1.0-1.8) 02/04/17 18:52 Triglycerides 80 mg/dL (<150) 01/29/17 21:04 Cholesterol 153 mg/dL (<200) 01/29/17 21:04 LDL Cholesterol Direct 126 mg/dL (75-193) 01/29/17 21:04 HDL Cholesterol 30 mg/dL (23-92) 01/29/17 21:04 TSH 1.53 uIU/ml (0.34-5.60) 01/29/17 22:04 RPR NONREACTIVE (NONREACTIVE) 01/29/17 22:04 - Physical Exam Vitals and I&O: Vital Signs Temp 97.9 F 02/04/17 16:12 Pulse 80 02/05/17 08:17 Resp 19 02/04/17 21:58 BP 144/70 02/05/17 08:17 Pulse Ox 98 02/04/17 21:58 Intake & Output 02/04/17 02/05/17 02/05/17 18:59 06:59 18:59 Intake Total 1200 Balance 1200 Intake: Oral 1200 Other: # Voids 1 # Bowel Movements 0 Active Medications: Current Medications Acetaminophen (Tylenol) 650 mg PO Q4HR PRN PRN Reason: Pain (Moderate) Stop: 03/31/17 01:17 Acetaminophen (Tylenol Extra Strength) 500 mg PO Q4HR PRN PRN Reason: Pain (Mild) Stop: 03/31/17 01:17 Acetaminophen (Tylenol Extra Strength) 1,000 mg PO Q4HR PRN PRN Reason: Pain (Severe) Stop: 03/31/17 01:17 Buspirone HCl (Buspar) 10 mg PO BID PRN PRN Reason: Anxiety Last Admin: 01/31/17 09:23 Dose: 10 mg Docusate Sodium (Colace) 250 mg PO BID [facility] Stop: 03/31/17 08:59 Last Admin: 02/05/17 08:17 Dose: 250 mg Ferrous Sulfate (Iron) 325 mg PO HS [facility] Stop: 03/31/17 20:59 Last Admin: 02/04/17 21:04 Dose: 325 mg Labetalol HCl (Trandate) 100 mg PO BID [facility] Stop: 03/31/17 08:59 Last Admin: 02/05/17 08:17 Dose: 100 mg Levetiracetam (Keppra) 1,000 mg PO BID [facility] Stop: 03/31/17 08:59 Last Admin: 02/05/17 08:17 Dose: 1,000 mg Lorazepam (Ativan) 1 mg PO TID PRN; Protocol PRN Reason: Agitation Stop: 03/31/17 01:17 Last Admin: 02/03/17 21:17 Dose: 1 mg Magnesium Hydroxide (Milk Of Magnesia) 30 ml PO DAILY PRN PRN Reason: Constipation Stop: 03/31/17 01:17 Last Admin: 02/04/17 16:53 Dose: 30 ml Megestrol Acetate (Megace) 400 mg PO BID [facility] Stop: 03/31/17 08:59 Last Admin: 02/05/17 08:17 Dose: 400 mg Mirtazapine (Remeron) 15 mg PO HS [facility] PRN Reason: Protocol Stop: 03/31/17 20:59 Last Admin: 02/04/17 21:04 Dose: 15 mg Modafinil (Provigil) 100 mg PO DAILY [facility] Stop: 04/06/17 08:59 Last Admin: 02/05/17 08:17 Dose: 100 mg Multivitamins/Vitamin C (Theragran) 1 tab PO DAILY [facility] Stop: 03/31/17 08:59 Last Admin: 02/05/17 08:17 Dose: 1 tab Pantoprazole Sodium (Protonix) 40 mg PO DAILY [facility] Stop: 03/31/17 08:59 Last Admin: 02/05/17 08:16 Dose: 40 mg Potassium Chloride (Klor-Con) 10 meq PO BID [facility] Stop: 03/31/17 08:59 Last Admin: 02/05/17 08:17 Dose: 10 meq Quetiapine Fumarate (Seroquel) 100 mg PO BID [facility] PRN Reason: Protocol Stop: 03/31/17 08:59 Last Admin: 02/05/17 08:17 Dose: 100 mg Trazodone HCl (Desyrel) 150 mg PO HS [facility] Stop: 03/31/17 20:59 Last Admin: 02/04/17 21:04 Dose: Not Given General: Other (Sleeping but arousable) HEENT: Atraumatic, PERRLA Neck: Supple Cardiovascular: Regular rate Lungs: Clear to auscultation Abdomen: Bowel sounds, Soft Extremities: Other (No edema) Neurological: Other (non ambulatory) Skin: Other (dry and warm) Psych/Mental Status: Other (Confused, not oriented) Assessment/Plan - Assessment Assessment: Patient is sleeping but arousable, in no acute distress. No more fever. Awaiting CXR. - Plan Plan: Continue with psychiatric care. Will continue to monitor. Nutritional Asmnt/Malnutr-PDOC - Dietary Evaluation Malnutrition Findings (Please click <Entered> for more info): Nutritional Asmnt/Malnutrition Start: 02/04/17 20: 15 Text: Status: Complete Freq: Document 02/04/17 20:15 [facility] (Rec: 02/04/17 20:27 [facility] [id number]) Nutritional Asmnt/Malnutrition Patient General Information Nutritional Screening Moderate Risk Screening Diagnosis Rule out dementia, psychosis, anxiety Pertinent Medical Hx/Surgical Hx Dementia, HTN, CAD, dyslipidemia, arthritis, s/p T5-T6 vertebral fracture, s/p traumatic subdural hemorrhage, degenerative joint disease, essential HTN Subjective Information Pt is a 81-year-old male from [facility] admitted with chief complaint of decompensation and agitation. Per RN notes, pt is confused and is a poor historian. Pt requires assistance at meal times. Pt is drinking Boost supplements, which helps to meet 34% of estimated calorie needs. Current Diet Order/ Nutrition Support Regular, chopped meat, Boost TID Patient / S.O Can't verbalize diet edu Pertinent Medications Coalce, Iron, Megace, Threagran, Protonix, Klor-Con, Seroquel Pertinent Labs (02/04) BUN 33H Nutritional Hx/Data Height 1.78 m Height (Calculated Centimeters) 177.8 Current Weight (lbs) 83.915 kg Weight (Calculated Kilograms) 83.9 Weight (Calculated Grams) 04007.6 [place] Body Weight 172 % [place] Body Weight 108 Weight Status Approriate GI Symptoms GI Symptoms None Food Allergies No Skin Integrity/Comment: Mando 17. Skin intact. Current %PO Poor (25-49%) Estimated Nutritional Goals BEE in Kcals: Using Current wt Calories/Kcals/Kg Based on current wt 84 kg Kcals Calculated 1634-9811 kcals/day (25-30 kcals/kg) Protein: Using Current wt Protein g/kg: Based on current wt 84 kg Protein Calculated 84 gm/day (1 gm/kg) Fluid: ml 6212-0733 ml/day (1 ml/kcal) or per MD/DO Nutritional Problem 1. Problem Problem Inadequate oral intake related to Etiology poor cognition, poor appetite as evidenced by Signs/Symptoms: average PO intake of 35% x 4 days. Malnutrition Alert Protein-Calorie Malnutrition N/A Is there a minimum of two criteria No selected? Query Text:Check all the applicable criteria. A minimum of two criteria are recommended for diagnosis of either severe or non-severe malnutrition. Malnutrition Related to Morbid Obesity Malnutrition related to morbid obesity No Intervention/Recommendation Comments 1. Consider discontinue multivitamin supplement as pt is drinking nutrition supplement to receive adequate vitamins and minerals. 2. Continue with current diet and assist at meal times. 3. Recommend change Boost to Boost Plus TID to better meet estimated nutritional needs. 4. Continue appetite stimulant . Expected Outcomes/Goals Expected Outcomes/Goals Have pt consume at least 50% of meals and supplements. Physician Parameters for PEM Normal Weight % 90% - 110% (Normal) Serum Albumin (g/dl) 3.5 - 5.0 (Normal)
--- NOTE | 2017-02-05 08:50 | Diagnostic Imaging Report ---
Exam: Ultrasound examination of the urinary bladder. HISTORY: Rule out obstruction. Findings: Real-time ultrasound examination of the urinary bladder was performed multiple planes. The study demonstrates distended bladder with approximately volume of 312 cc The prostate gland measures 3.6 x 2.2 x 3.6 cm with the echogenic nodularity 1.8 cm transrectal ultrasound or MRI examination of prostate gland is recommended. There is a question of a small amount of debris in the most dependent portion of uterine or bladder. Patient was not able to void spontaneously. IMPRESSION: 1. Distended urinary bladder question overlying debris in the most dependent portion. Echogenic nodularity 1.8 cm within prostate gland follow-up examination is recommended.
[2017-02-05] MEDS ORDERED: Hydrocodone/APAP 5mg/325mg Tab ONE (12:00)
[2017-02-05] MEDS: Hydrocodone/APAP 5mg/325mg Tab PO PRN (12:09)
[2017-02-05] MEDS: Ferrous Sulfate 325 MG TAB PO SCH (21:09)
--- NOTE | 2017-02-05 21:42 | Progress Notes ---
DATE: 02/05/2017 SUBJECTIVE: Chart reviewed and the patient interviewed. Also discussed the patient's condition with the staff and reviewed records and labs. The patient remains confused and is still easily agitated. The patient also is restless and the patient had episodes of yelling and screaming. Also, this morning during interview the patient was taking off his clothes. He is in irritable and angry mood and he is still aggressive with the staff and easily agitated. The patient still needs lots of redirections and he is still disheveled. ASSESSMENT: The patient is still psychotic and agitated. TREATMENT PLAN: We will increase Seroquel to 100 mg twice a day. Also, continue monitoring his behavior and we will continue to follow up closely. JOB# [id number]
[2017-02-06] MEDS: Multivitamin Tab PO SCH (09:50)
[2017-02-06] MEDS: Pantoprazole 40 mg EC Tab PO SCH (09:50)
[2017-02-06] MEDS: Potassium Chloride 10 mEq ER Tab PO SCH ×2 (09:50→16:39)
--- NOTE | 2017-02-06 15:00 | General Progress Note ---
Subjective - Review of Systems Service Date: 02/06/17 Subjective: Confused Objective - Results Result Diagrams: 02/04/17 18:52 02/04/17 18:52 Recent Labs: Laboratory Last Values WBC 5.3 Th/cmm (4.8-10.8) D 02/04/17 18:52 RBC 4.06 Mil/cmm (3.80-5.80) 02/04/17 18:52 Hgb 12.4 gm/dL (12.6-17.4) L 02/04/17 18:52 Hct 37.0 % (39.0-49.0) L 02/04/17 18:52 MCV 91.1 fl (80-99) 02/04/17 18:52 MCH 30.6 pg (27.0-31.0) 02/04/17 18:52 MCHC Differential 33.5 pg (28.0-36.0) 02/04/17 18:52 RDW 14.4 % (11.5-20.0) 02/04/17 18:52 Plt Count 185 Th/cmm (150-400) 02/04/17 18:52 MPV 9.1 fl 02/04/17 18:52 Neutrophils % 49.2 % (40.0-80.0) 02/04/17 18:52 Lymphocytes % 34.2 % (20.0-50.0) 02/04/17 18:52 Monocytes % 12.0 % (2.0-10.0) H 02/04/17 18:52 Eosinophils % 3.2 % (0.0-5.0) 02/04/17 18:52 Basophils % 1.4 % (0.0-2.0) 02/04/17 18:52 PT 12.6 SECONDS (9.5-11.5) H 01/29/17 21:04 INR 1.20 (0.5-1.4) 01/29/17 21:04 PTT (Actin FS) 24.5 SECONDS (26.0-38.0) L 01/29/17 21:04 Sodium 139 mEq/L (136-145) 02/04/17 18:52 Potassium 3.9 mEq/L (3.5-5.1) 02/04/17 18:52 Chloride 112 mEq/L (98-107) H 02/04/17 18:52 Carbon Dioxide 23.6 mEq/L (21.0-31.0) 02/04/17 18:52 Anion Gap 7.3 (7.0-16.0) 02/04/17 18:52 BUN 33 mg/dL (7-25) H 02/04/17 18:52 Creatinine 1.3 mg/dL (0.7-1.3) 02/04/17 18:52 Est GFR ( Amer) TNP 02/04/17 18:52 Est GFR (Non-Af Amer) TNP 02/04/17 18:52 BUN/Creatinine Ratio 25.4 02/04/17 18:52 Glucose 116 mg/dL (70-105) H 02/04/17 18:52 Calcium 9.6 mg/dL (8.6-10.3) 02/04/17 18:52 Total Bilirubin 0.4 mg/dL (0.3-1.0) 02/04/17 18:52 AST 15 U/L (13-39) 02/04/17 18:52 ALT 8 U/L (7-52) 02/04/17 18:52 Alkaline Phosphatase 50 U/L (34-104) 02/04/17 18:52 Troponin I 0.01 ng/mL (0.01-0.05) 01/29/17 22:04 Total Protein 6.5 gm/dL (6.0-8.3) 02/04/17 18:52 Albumin 3.5 gm/dL (4.2-5.5) L 02/04/17 18:52 Globulin 3.0 gm/dL 02/04/17 18:52 Albumin/Globulin Ratio 1.2 (1.0-1.8) 02/04/17 18:52 Triglycerides 80 mg/dL (<150) 01/29/17 21:04 Cholesterol 153 mg/dL (<200) 01/29/17 21:04 LDL Cholesterol Direct 126 mg/dL (75-193) 01/29/17 21:04 HDL Cholesterol 30 mg/dL (23-92) 01/29/17 21:04 TSH 1.53 uIU/ml (0.34-5.60) 01/29/17 22:04 RPR NONREACTIVE (NONREACTIVE) 01/29/17 22:04 - Physical Exam Vitals and I&O: Vital Signs Temp 98.4 F 02/06/17 06:14 Pulse 80 02/06/17 06:14 Resp 20 02/06/17 06:14 BP 108/61 02/06/17 06:14 Pulse Ox 95 02/06/17 06:14 Intake & Output 02/05/17 02/06/17 02/06/17 18:59 06:59 18:59 Intake Total 1200 360 Balance 1200 360 Intake: Oral 1200 360 Other: # Voids 1 # Bowel Movements 1 Active Medications: Current Medications Acetaminophen (Tylenol) 650 mg PO Q4HR PRN PRN Reason: Pain (Moderate) Stop: 03/31/17 01:17 Acetaminophen (Tylenol Extra Strength) 500 mg PO Q4HR PRN PRN Reason: Pain (Mild) Stop: 03/31/17 01:17 Acetaminophen (Tylenol Extra Strength) 1,000 mg PO Q4HR PRN PRN Reason: Pain (Severe) Stop: 03/31/17 01:17 Acetaminophen/Hydrocodone Bitart ([place] 5mg/325mg) 1 tab PO Q6H PRN PRN Reason: pain Stop: 04/06/17 11:54 Last Admin: 02/05/17 12:09 Dose: 1 tab Buspirone HCl (Buspar) 10 mg PO BID PRN PRN Reason: Anxiety Last Admin: 01/31/17 09:23 Dose: 10 mg Docusate Sodium (Colace) 250 mg PO BID [facility] Stop: 03/31/17 08:59 Last Admin: 02/06/17 09:50 Dose: Not Given Ferrous Sulfate (Iron) 325 mg PO HS [facility] Stop: 03/31/17 20:59 Last Admin: 02/05/17 21:09 Dose: 325 mg Labetalol HCl (Trandate) 100 mg PO BID [facility] Stop: 03/31/17 08:59 Last Admin: 02/06/17 09:50 Dose: Not Given Levetiracetam (Keppra) 1,000 mg PO BID [facility] Stop: 03/31/17 08:59 Last Admin: 02/06/17 09:50 Dose: Not Given Magnesium Hydroxide (Milk Of Magnesia) 30 ml PO DAILY PRN PRN Reason: Constipation Stop: 03/31/17 01:17 Last Admin: 02/04/17 16:53 Dose: 30 ml Megestrol Acetate (Megace) 400 mg PO BID [facility] Stop: 03/31/17 08:59 Last Admin: 02/06/17 09:50 Dose: Not Given Mirtazapine (Remeron) 15 mg PO [facility] PRN Reason: Protocol Stop: 03/31/17 20:59 Last Admin: 02/05/17 21:11 Dose: 15 mg Modafinil (Provigil) 100 mg PO DAILY [facility] Stop: 04/06/17 08:59 Last Admin: 02/06/17 09:50 Dose: Not Given Multivitamins/Vitamin C (Theragran) 1 tab PO DAILY [facility] Stop: 03/31/17 08:59 Last Admin: 02/06/17 09:50 Dose: Not Given Pantoprazole Sodium (Protonix) 40 mg PO DAILY [facility] Stop: 03/31/17 08:59 Last Admin: 02/06/17 09:50 Dose: Not Given Potassium Chloride (Klor-Con) 10 meq PO BID [facility] Stop: 03/31/17 08:59 Last Admin: 02/06/17 09:50 Dose: Not Given Quetiapine Fumarate (Seroquel) 100 mg PO BID [facility] PRN Reason: Protocol Stop: 03/31/17 08:59 Last Admin: 02/06/17 09:50 Dose: Not Given Trazodone HCl (Desyrel) 150 mg PO HS [facility] Stop: 03/31/17 20:59 Last Admin: 02/05/17 21:12 Dose: 150 mg General: Other (Sleeping but arousable) HEENT: Atraumatic, PERRLA Neck: Supple Cardiovascular: Regular rate Lungs: Clear to auscultation Abdomen: Bowel sounds, Soft Extremities: Other (No edema) Neurological: Other (non ambulatory) Skin: Other (dry and warm) Psych/Mental Status: Other (Confused, not oriented) Assessment/Plan - Assessment Assessment: Patient is sleeping but arousable, in no acute distress. No more fever. - Plan Plan: Continue with psychiatric care. Will continue to monitor. Nutritional Asmnt/Malnutr-PDOC - Dietary Evaluation Malnutrition Findings (Please click <Entered> for more info): Nutritional Asmnt/Malnutrition Start: 02/04/17 20: 15 Text: Status: Complete Freq: Document 02/04/17 20:15 [facility] (Rec: 02/04/17 20:27 [facility] [id number]) Nutritional Asmnt/Malnutrition Patient General Information Nutritional Screening Moderate Risk Screening Diagnosis Rule out dementia, psychosis, anxiety Pertinent Medical Hx/Surgical Hx Dementia, HTN, CAD, dyslipidemia, arthritis, s/p T5-T6 vertebral fracture, s/p traumatic subdural hemorrhage, degenerative joint disease, essential HTN Subjective Information Pt is a 81-year-old male from [facility] admitted with chief complaint of decompensation and agitation. Per RN notes, pt is confused and is a poor historian. Pt requires assistance at meal times. Pt is drinking Boost supplements, which helps to meet 34% of estimated calorie needs. Current Diet Order/ Nutrition Support Regular, chopped meat, Boost TID Patient / S.O Can't verbalize diet edu Pertinent Medications Coalce, Iron, Megace, Threagran, Protonix, Klor-Con, Seroquel Pertinent Labs (02/04) BUN 33H Nutritional Hx/Data Height 1.78 m Height (Calculated Centimeters) 177.8 Current Weight (lbs) 83.915 kg Weight (Calculated Kilograms) 83.9 Weight (Calculated Grams) 92261.6 [place] Body Weight 172 % [place] Body Weight 108 Weight Status Approriate GI Symptoms GI Symptoms None Food Allergies No Skin Integrity/Comment: Mando Roberts. Skin intact. Current %PO Poor (25-49%) Estimated Nutritional Goals BEE in Kcals: Using Current wt Calories/Kcals/Kg Based on current wt 84 kg Kcals Calculated 8714-6646 kcals/day (25-30 kcals/kg) Protein: Using Current wt Protein g/kg: Based on current wt 84 kg Protein Calculated 84 gm/day (1 gm/kg) Fluid: ml 5685-7067 ml/day (1 ml/kcal) or per MD/DO Nutritional Problem 1. Problem Problem Inadequate oral intake related to Etiology poor cognition, poor appetite as evidenced by Signs/Symptoms: average PO intake of 35% x 4 days. Malnutrition Alert Protein-Calorie Malnutrition N/A Is there a minimum of two criteria No selected? Query Text:Check all the applicable criteria. A minimum of two criteria are recommended for diagnosis of either severe or non-severe malnutrition. Malnutrition Related to Morbid Obesity Malnutrition related to morbid obesity No Intervention/Recommendation Comments 1. Consider discontinue multivitamin supplement as pt is drinking nutrition supplement to receive adequate vitamins and minerals. 2. Continue with current diet and assist at meal times. 3. Recommend change Boost to Boost Plus TID to better meet estimated nutritional needs. 4. Continue appetite stimulant . Expected Outcomes/Goals Expected Outcomes/Goals Have pt consume at least 50% of meals and supplements. Physician Parameters for PEM Normal Weight % 90% - 110% (Normal) Serum Albumin (g/dl) 3.5 - 5.0 (Normal)
[2017-02-06] MEDS: Ferrous Sulfate 325 MG TAB PO SCH (20:51)
--- NOTE | 2017-02-06 20:59 | Progress Notes ---
DATE: 02/06/2017 The patient was seen, chart reviewed, and discussed with staff. The patient continues to be unable to answer questions in a coherent manner. When I questioned him, the patient started talking about his wedding. According to staff, the patient is often seen yelling, screaming for no particular reason. The patient can often be seen disrobing, but is ultimately redirectable. PLAN: The patient continues to be very confused, unpredictable, so that he will require inpatient care physician treatment. We will monitor the patient on a daily basis for his response and titrate medications as needed. JOB# [id number]
[2017-02-07] MEDS: Potassium Chloride 10 mEq ER Tab PO SCH ×3 (08:05→16:14)
[2017-02-07] MEDS: Multivitamin Tab PO SCH ×2 (08:05→08:21)
[2017-02-07] MEDS: Hydrocodone/APAP 5mg/325mg Tab PO PRN (08:05)
[2017-02-07] MEDS: Pantoprazole 40 mg EC Tab PO SCH ×2 (08:06→08:21)
--- NOTE | 2017-02-07 09:28 | General Progress Note ---
Subjective - Review of Systems Service Date: 02/07/17 Subjective: Sleeping Objective - Results Result Diagrams: 02/04/17 18:52 02/04/17 18:52 Recent Labs: Laboratory Last Values WBC 5.3 Th/cmm (4.8-10.8) D 02/04/17 18:52 RBC 4.06 Mil/cmm (3.80-5.80) 02/04/17 18:52 Hgb 12.4 gm/dL (12.6-17.4) L 02/04/17 18:52 Hct 37.0 % (39.0-49.0) L 02/04/17 18:52 MCV 91.1 fl (80-99) 02/04/17 18:52 MCH 30.6 pg (27.0-31.0) 02/04/17 18:52 MCHC Differential 33.5 pg (28.0-36.0) 02/04/17 18:52 RDW 14.4 % (11.5-20.0) 02/04/17 18:52 Plt Count 185 Th/cmm (150-400) 02/04/17 18:52 MPV 9.1 fl 02/04/17 18:52 Neutrophils % 49.2 % (40.0-80.0) 02/04/17 18:52 Lymphocytes % 34.2 % (20.0-50.0) 02/04/17 18:52 Monocytes % 12.0 % (2.0-10.0) H 02/04/17 18:52 Eosinophils % 3.2 % (0.0-5.0) 02/04/17 18:52 Basophils % 1.4 % (0.0-2.0) 02/04/17 18:52 PT 12.6 SECONDS (9.5-11.5) H 01/29/17 21:04 INR 1.20 (0.5-1.4) 01/29/17 21:04 PTT (Actin FS) 24.5 SECONDS (26.0-38.0) L 01/29/17 21:04 Sodium 139 mEq/L (136-145) 02/04/17 18:52 Potassium 3.9 mEq/L (3.5-5.1) 02/04/17 18:52 Chloride 112 mEq/L (98-107) H 02/04/17 18:52 Carbon Dioxide 23.6 mEq/L (21.0-31.0) 02/04/17 18:52 Anion Gap 7.3 (7.0-16.0) 02/04/17 18:52 BUN 33 mg/dL (7-25) H 02/04/17 18:52 Creatinine 1.3 mg/dL (0.7-1.3) 02/04/17 18:52 Est GFR ( Amer) TNP 02/04/17 18:52 Est GFR (Non-Af Amer) TNP 02/04/17 18:52 BUN/Creatinine Ratio 25.4 02/04/17 18:52 Glucose 116 mg/dL (70-105) H 02/04/17 18:52 Calcium 9.6 mg/dL (8.6-10.3) 02/04/17 18:52 Total Bilirubin 0.4 mg/dL (0.3-1.0) 02/04/17 18:52 AST 15 U/L (13-39) 02/04/17 18:52 ALT 8 U/L (7-52) 02/04/17 18:52 Alkaline Phosphatase 50 U/L (34-104) 02/04/17 18:52 Troponin I 0.01 ng/mL (0.01-0.05) 01/29/17 22:04 Total Protein 6.5 gm/dL (6.0-8.3) 02/04/17 18:52 Albumin 3.5 gm/dL (4.2-5.5) L 02/04/17 18:52 Globulin 3.0 gm/dL 02/04/17 18:52 Albumin/Globulin Ratio 1.2 (1.0-1.8) 02/04/17 18:52 Triglycerides 80 mg/dL (<150) 01/29/17 21:04 Cholesterol 153 mg/dL (<200) 01/29/17 21:04 LDL Cholesterol Direct 126 mg/dL (75-193) 01/29/17 21:04 HDL Cholesterol 30 mg/dL (23-92) 01/29/17 21:04 TSH 1.53 uIU/ml (0.34-5.60) 01/29/17 22:04 RPR NONREACTIVE (NONREACTIVE) 01/29/17 22:04 - Physical Exam Vitals and I&O: Vital Signs Temp 97.9 F 02/07/17 06:48 Pulse 75 02/07/17 06:48 Resp 20 02/07/17 06:48 BP 128/71 02/07/17 06:48 Pulse Ox 98 02/07/17 06:48 Intake & Output 02/06/17 02/07/17 02/07/17 18:59 06:59 18:59 Intake Total 600 120 Balance 600 120 Intake: Oral 600 120 Other: # Voids 3 3 # Bowel Movements 1 Active Medications: Current Medications Acetaminophen (Tylenol) 650 mg PO Q4HR PRN PRN Reason: Pain (Moderate) Stop: 03/31/17 01:17 Acetaminophen (Tylenol Extra Strength) 500 mg PO Q4HR PRN PRN Reason: Pain (Mild) Stop: 03/31/17 01:17 Acetaminophen (Tylenol Extra Strength) 1,000 mg PO Q4HR PRN PRN Reason: Pain (Severe) Stop: 03/31/17 01:17 Acetaminophen/Hydrocodone Bitart ([place] 5mg/325mg) 1 tab PO Q6H PRN PRN Reason: pain Stop: 04/06/17 11:54 Last Admin: 02/05/17 12:09 Dose: 1 tab Buspirone HCl (Buspar) 10 mg PO BID PRN PRN Reason: Anxiety Last Admin: 02/07/17 01:34 Dose: 10 mg Docusate Sodium (Colace) 250 mg PO BID [facility] Stop: 03/31/17 08:59 Last Admin: 02/07/17 08:21 Dose: Not Given Ferrous Sulfate (Iron) 325 mg PO HS [facility] Stop: 03/31/17 20:59 Last Admin: 02/06/17 20:51 Dose: 325 mg Labetalol HCl (Trandate) 100 mg PO BID [facility] Stop: 03/31/17 08:59 Last Admin: 02/07/17 08:21 Dose: Not Given Levetiracetam (Keppra) 1,000 mg PO BID [facility] Stop: 03/31/17 08:59 Last Admin: 02/07/17 08:21 Dose: Not Given Magnesium Hydroxide (Milk Of Magnesia) 30 ml PO DAILY PRN PRN Reason: Constipation Stop: 03/31/17 01:17 Last Admin: 02/04/17 16:53 Dose: 30 ml Megestrol Acetate (Megace) 400 mg PO BID [facility] Stop: 03/31/17 08:59 Last Admin: 02/07/17 08:21 Dose: Not Given Mirtazapine (Remeron) 15 mg PO HS [facility] PRN Reason: Protocol Stop: 03/31/17 20:59 Last Admin: 02/06/17 20:51 Dose: 15 mg Modafinil (Provigil) 100 mg PO DAILY [facility] Stop: 04/06/17 08:59 Last Admin: 02/07/17 08:20 Dose: Not Given Multivitamins/Vitamin C (Theragran) 1 tab PO DAILY [facility] Stop: 03/31/17 08:59 Last Admin: 02/07/17 08:21 Dose: Not Given Pantoprazole Sodium (Protonix) 40 mg PO DAILY [facility] Stop: 03/31/17 08:59 Last Admin: 02/07/17 08:21 Dose: Not Given Potassium Chloride (Klor-Con) 10 meq PO BID [facility] Stop: 03/31/17 08:59 Last Admin: 02/07/17 08:21 Dose: Not Given Quetiapine Fumarate (Seroquel) 100 mg PO BID [facility] PRN Reason: Protocol Stop: 03/31/17 08:59 Last Admin: 02/07/17 08:21 Dose: Not Given Trazodone HCl (Desyrel) 150 mg PO HS [facility] Stop: 03/31/17 20:59 Last Admin: 02/06/17 20:50 Dose: 150 mg General: Other (Sleeping but arousable) HEENT: Atraumatic, PERRLA Neck: Supple Cardiovascular: Regular rate Lungs: Clear to auscultation Abdomen: Bowel sounds, Soft Extremities: Other (No edema) Neurological: Other (non ambulatory) Skin: Other (dry and warm) Psych/Mental Status: Other (Confused, not oriented) Assessment/Plan - Assessment Assessment: Patient is sleeping but arousable, in no acute distress. Per nurse report patient has been agitated. - Plan Plan: Continue with psychiatric care. Will continue to monitor. Nutritional Asmnt/Malnutr-PDOC - Dietary Evaluation Malnutrition Findings (Please click <Entered> for more info): Nutritional Asmnt/Malnutrition Start: 02/04/17 20: 15 Text: Status: Complete Freq: Document 02/04/17 20:15 [facility] (Rec: 02/04/17 20:27 [facility] [id number]) Nutritional Asmnt/Malnutrition Patient General Information Nutritional Screening Moderate Risk Screening Diagnosis Rule out dementia, psychosis, anxiety Pertinent Medical Hx/Surgical Hx Dementia, HTN, CAD, dyslipidemia, arthritis, s/p T5-T6 vertebral fracture, s/p traumatic subdural hemorrhage, degenerative joint disease, essential HTN Subjective Information Pt is a 81-year-old male from [facility] admitted with chief complaint of decompensation and agitation. Per RN notes, pt is confused and is a poor historian. Pt requires assistance at meal times. Pt is drinking Boost supplements, which helps to meet 34% of estimated calorie needs. Current Diet Order/ Nutrition Support Regular, chopped meat, Boost TID Patient / S.O Can't verbalize diet edu Pertinent Medications Coalce, Iron, Megace, Threagran, Protonix, Klor-Con, Seroquel Pertinent Labs (02/04) BUN 33H Nutritional Hx/Data Height 1.78 m Height (Calculated Centimeters) 177.8 Current Weight (lbs) 83.915 kg Weight (Calculated Kilograms) 83.9 Weight (Calculated Grams) 19098.6 [place] Body Weight 172 % [place] Body Weight 108 Weight Status Approriate GI Symptoms GI Symptoms None Food Allergies No Skin Integrity/Comment: M[place] 17. Skin intact. Current %PO Poor (25-49%) Estimated Nutritional Goals BEE in Kcals: Using Current wt Calories/Kcals/Kg Based on current wt 84 kg Kcals Calculated 8363-4652 kcals/day (25-30 kcals/kg) Protein: Using Current wt Protein g/kg: Based on current wt 84 kg Protein Calculated 84 gm/day (1 gm/kg) Fluid: ml 1806-2870 ml/day (1 ml/kcal) or per MD/DO Nutritional Problem 1. Problem Problem Inadequate oral intake related to Etiology poor cognition, poor appetite as evidenced by Signs/Symptoms: average PO intake of 35% x 4 days. Malnutrition Alert Protein-Calorie Malnutrition N/A Is there a minimum of two criteria No selected? Query Text:Check all the applicable criteria. A minimum of two criteria are recommended for diagnosis of either severe or non-severe malnutrition. Malnutrition Related to Morbid Obesity Malnutrition related to morbid obesity No Intervention/Recommendation Comments 1. Consider discontinue multivitamin supplement as pt is drinking nutrition supplement to receive adequate vitamins and minerals. 2. Continue with current diet and assist at meal times. 3. Recommend change Boost to Boost Plus TID to better meet estimated nutritional needs. 4. Continue appetite stimulant . Expected Outcomes/Goals Expected Outcomes/Goals Have pt consume at least 50% of meals and supplements. Physician Parameters for PEM Normal Weight % 90% - 110% (Normal) Serum Albumin (g/dl) 3.5 - 5.0 (Normal)
[2017-02-07] MEDS: Ferrous Sulfate 325 MG TAB PO SCH (20:16)
--- NOTE | 2017-02-07 22:12 | Progress Notes ---
DATE: 02/07/2017 SUBJECTIVE: The patient was seen, chart reviewed, discussed with staff. The patient is currently in the hospital, sent from a nursing facility, yelling, uncooperative, screaming, aggressive, agitation, violent, uncontrollable, crying. The patient mumbling to himself, not speaking to me whatsoever, likely history of dementia and anxiety, unspecified. The patient remains still symptomatic, still irritable, confused. Medications were reviewed. Labs were reviewed. Given the severity of the patient's ongoing symptoms, there are continued safety concerns, he does not appear to be stable at this time for discharge. Still mumbling to himself. [facility]# [id number]
--- NOTE | 2017-02-08 09:18 | General Progress Note ---
Subjective - Review of Systems Service Date: 02/08/17 Subjective: Sleeping Objective - Results Result Diagrams: 02/04/17 18:52 02/04/17 18:52 Recent Labs: Laboratory Last Values WBC 5.3 Th/cmm (4.8-10.8) D 02/04/17 18:52 RBC 4.06 Mil/cmm (3.80-5.80) 02/04/17 18:52 Hgb 12.4 gm/dL (12.6-17.4) L 02/04/17 18:52 Hct 37.0 % (39.0-49.0) L 02/04/17 18:52 MCV 91.1 fl (80-99) 02/04/17 18:52 MCH 30.6 pg (27.0-31.0) 02/04/17 18:52 MCHC Differential 33.5 pg (28.0-36.0) 02/04/17 18:52 RDW 14.4 % (11.5-20.0) 02/04/17 18:52 Plt Count 185 Th/cmm (150-400) 02/04/17 18:52 MPV 9.1 fl 02/04/17 18:52 Neutrophils % 49.2 % (40.0-80.0) 02/04/17 18:52 Lymphocytes % 34.2 % (20.0-50.0) 02/04/17 18:52 Monocytes % 12.0 % (2.0-10.0) H 02/04/17 18:52 Eosinophils % 3.2 % (0.0-5.0) 02/04/17 18:52 Basophils % 1.4 % (0.0-2.0) 02/04/17 18:52 PT 12.6 SECONDS (9.5-11.5) H 01/29/17 21:04 INR 1.20 (0.5-1.4) 01/29/17 21:04 PTT (Actin FS) 24.5 SECONDS (26.0-38.0) L 01/29/17 21:04 Sodium 139 mEq/L (136-145) 02/04/17 18:52 Potassium 3.9 mEq/L (3.5-5.1) 02/04/17 18:52 Chloride 112 mEq/L (98-107) H 02/04/17 18:52 Carbon Dioxide 23.6 mEq/L (21.0-31.0) 02/04/17 18:52 Anion Gap 7.3 (7.0-16.0) 02/04/17 18:52 BUN 33 mg/dL (7-25) H 02/04/17 18:52 Creatinine 1.3 mg/dL (0.7-1.3) 02/04/17 18:52 Est GFR ( Amer) TNP 02/04/17 18:52 Est GFR (Non-Af Amer) TNP 02/04/17 18:52 BUN/Creatinine Ratio 25.4 02/04/17 18:52 Glucose 116 mg/dL (70-105) H 02/04/17 18:52 Calcium 9.6 mg/dL (8.6-10.3) 02/04/17 18:52 Total Bilirubin 0.4 mg/dL (0.3-1.0) 02/04/17 18:52 AST 15 U/L (13-39) 02/04/17 18:52 ALT 8 U/L (7-52) 02/04/17 18:52 Alkaline Phosphatase 50 U/L (34-104) 02/04/17 18:52 Troponin I 0.01 ng/mL (0.01-0.05) 01/29/17 22:04 Total Protein 6.5 gm/dL (6.0-8.3) 02/04/17 18:52 Albumin 3.5 gm/dL (4.2-5.5) L 02/04/17 18:52 Globulin 3.0 gm/dL 02/04/17 18:52 Albumin/Globulin Ratio 1.2 (1.0-1.8) 02/04/17 18:52 Triglycerides 80 mg/dL (<150) 01/29/17 21:04 Cholesterol 153 mg/dL (<200) 01/29/17 21:04 LDL Cholesterol Direct 126 mg/dL (75-193) 01/29/17 21:04 HDL Cholesterol 30 mg/dL (23-92) 01/29/17 21:04 TSH 1.53 uIU/ml (0.34-5.60) 01/29/17 22:04 RPR NONREACTIVE (NONREACTIVE) 01/29/17 22:04 - Physical Exam Vitals and I&O: Vital Signs Temp 0 F 02/08/17 05:29 Pulse 71 02/07/17 19:54 Resp 20 02/07/17 19:54 BP 120/74 02/07/17 19:54 Pulse Ox 96 02/07/17 19:54 Intake & Output 02/07/17 02/08/17 02/08/17 18:59 06:59 18:59 Intake Total 600 120 Balance 600 120 Intake: Oral 600 120 Other: # Voids 3 3 # Bowel Movements 0 0 Active Medications: Current Medications Acetaminophen (Tylenol) 650 mg PO Q4HR PRN PRN Reason: Pain (Moderate) Stop: 03/31/17 01:17 Acetaminophen (Tylenol Extra Strength) 500 mg PO Q4HR PRN PRN Reason: Pain (Mild) Stop: 03/31/17 01:17 Acetaminophen (Tylenol Extra Strength) 1,000 mg PO Q4HR PRN PRN Reason: Pain (Severe) Stop: 03/31/17 01:17 Acetaminophen/Hydrocodone Bitart ([place] 5mg/325mg) 1 tab PO Q6H PRN PRN Reason: pain Stop: 04/06/17 11:54 Last Admin: 02/05/17 12:09 Dose: 1 tab Buspirone HCl (Buspar) 10 mg PO BID PRN PRN Reason: Anxiety Last Admin: 02/07/17 01:34 Dose: 10 mg Docusate Sodium (Colace) 250 mg PO BID [facility] Stop: 03/31/17 08:59 Last Admin: 02/07/17 16:14 Dose: Not Given Ferrous Sulfate (Iron) 325 mg PO HS [facility] Stop: 03/31/17 20:59 Last Admin: 02/07/17 20:16 Dose: Not Given Labetalol HCl (Trandate) 100 mg PO BID [facility] Stop: 03/31/17 08:59 Last Admin: 02/07/17 16:14 Dose: Not Given Levetiracetam (Keppra) 1,000 mg PO BID [facility] Stop: 03/31/17 08:59 Last Admin: 02/07/17 16:14 Dose: Not Given Magnesium Hydroxide (Milk Of Magnesia) 30 ml PO DAILY PRN PRN Reason: Constipation Stop: 03/31/17 01:17 Last Admin: 02/04/17 16:53 Dose: 30 ml Megestrol Acetate (Megace) 400 mg PO BID [facility] Stop: 03/31/17 08:59 Last Admin: 02/07/17 16:14 Dose: Not Given Mirtazapine (Remeron) 15 mg PO [facility] PRN Reason: Protocol Stop: 03/31/17 20:59 Last Admin: 02/07/17 20:16 Dose: Not Given Modafinil (Provigil) 100 mg PO DAILY [facility] Stop: 04/06/17 08:59 Last Admin: 02/07/17 08:20 Dose: Not Given Multivitamins/Vitamin C (Theragran) 1 tab PO DAILY [facility] Stop: 03/31/17 08:59 Last Admin: 02/07/17 08:21 Dose: Not Given Pantoprazole Sodium (Protonix) 40 mg PO DAILY [facility] Stop: 03/31/17 08:59 Last Admin: 02/07/17 08:21 Dose: Not Given Potassium Chloride (Klor-Con) 10 meq PO BID [facility] Stop: 03/31/17 08:59 Last Admin: 02/07/17 16:14 Dose: Not Given Quetiapine Fumarate (Seroquel) 100 mg PO BID [facility] PRN Reason: Protocol Stop: 03/31/17 08:59 Last Admin: 02/07/17 16:14 Dose: Not Given Trazodone HCl (Desyrel) 150 mg PO HS [facility] Stop: 03/31/17 20:59 Last Admin: 02/07/17 20:16 Dose: Not Given General: Other (Sleeping but arousable) HEENT: Atraumatic, PERRLA Neck: Supple Cardiovascular: Regular rate Lungs: Clear to auscultation Abdomen: Bowel sounds, Soft Extremities: Other (No edema) Neurological: Other (non ambulatory) Skin: Other (dry and warm) Psych/Mental Status: Other (Confused, not oriented) Assessment/Plan - Assessment Assessment: Patient is sleeping but arousable, in no acute distress. Per nurse report patient has been agitated. - Plan Plan: Continue with psychiatric care. Will continue to monitor. Nutritional Asmnt/Malnutr-PDOC - Dietary Evaluation Malnutrition Findings (Please click <Entered> for more info): Nutritional Asmnt/Malnutrition Start: 02/04/17 20: 15 Text: Status: Complete Freq: Document 02/04/17 20:15 [facility] (Rec: 02/04/17 20:27 [facility] [id number]) Nutritional Asmnt/Malnutrition Patient General Information Nutritional Screening Moderate Risk Screening Diagnosis Rule out dementia, psychosis, anxiety Pertinent Medical Hx/Surgical Hx Dementia, HTN, CAD, dyslipidemia, arthritis, s/p T5-T6 vertebral fracture, s/p traumatic subdural hemorrhage, degenerative joint disease, essential HTN Subjective Information Pt is a 81-year-old male from [facility] admitted with chief complaint of decompensation and agitation. Per RN notes, pt is confused and is a poor historian. Pt requires assistance at meal times. Pt is drinking Boost supplements, which helps to meet 34% of estimated calorie needs. Current Diet Order/ Nutrition Support Regular, chopped meat, Boost TID Patient / S.O Can't verbalize diet edu Pertinent Medications Coalce, Iron, Megace, Threagran, Protonix, Klor-Con, Seroquel Pertinent Labs (02/04) BUN 33H Nutritional Hx/Data Height 1.78 m Height (Calculated Centimeters) 177.8 Current Weight (lbs) 83.915 kg Weight (Calculated Kilograms) 83.9 Weight (Calculated Grams) 58805.6 [place] Body Weight 172 % [place] Body Weight 108 Weight Status Approriate GI Symptoms GI Symptoms None Food Allergies No Skin Integrity/Comment: [place] 17. Skin intact. Current %PO Poor (25-49%) Estimated Nutritional Goals BEE in Kcals: Using Current wt Calories/Kcals/Kg Based on current wt 84 kg Kcals Calculated 4500-5657 kcals/day (25-30 kcals/kg) Protein: Using Current wt Protein g/kg: Based on current wt 84 kg Protein Calculated 84 gm/day (1 gm/kg) Fluid: ml 9098-1773 ml/day (1 ml/kcal) or per MD/DO Nutritional Problem 1. Problem Problem Inadequate oral intake related to Etiology poor cognition, poor appetite as evidenced by Signs/Symptoms: average PO intake of 35% x 4 days. Malnutrition Alert Protein-Calorie Malnutrition N/A Is there a minimum of two criteria No selected? Query Text:Check all the applicable criteria. A minimum of two criteria are recommended for diagnosis of either severe or non-severe malnutrition. Malnutrition Related to Morbid Obesity Malnutrition related to morbid obesity No Intervention/Recommendation Comments 1. Consider discontinue multivitamin supplement as pt is drinking nutrition supplement to receive adequate vitamins and minerals. 2. Continue with current diet and assist at meal times. 3. Recommend change Boost to Boost Plus TID to better meet estimated nutritional needs. 4. Continue appetite stimulant . Expected Outcomes/Goals Expected Outcomes/Goals Have pt consume at least 50% of meals and supplements. Physician Parameters for PEM Normal Weight % 90% - 110% (Normal) Serum Albumin (g/dl) 3.5 - 5.0 (Normal)
[2017-02-08] MEDS: Potassium Chloride 10 mEq ER Tab PO SCH (09:37)
[2017-02-08] MEDS: Pantoprazole 40 mg EC Tab PO SCH (09:37)
[2017-02-08] MEDS: Multivitamin Tab PO SCH (09:38)
--- NOTE | 2017-02-08 22:45 | Discharge Summary ---
DATE OF DISCHARGE: 02/08/2017 FINAL DIAGNOSIS/PRIMARY DIAGNOSIS: Psychosis, unspecified. SECONDARY DIAGNOSIS: Dementia, severe, with psychotic features. REASON FOR HOSPITALIZATION: The patient was admitted to the hospital because of increased agitation, irritability, confusion, and aggressive behavior. HOSPITAL COURSE: The patient continued to be agitated and in irritable mood. The patient also was angry and irritable. The patient also needed lots of redirections. The patient had episodes of yelling and screaming at times and other times singing and yelling. Gradually, the patient's affect became brighter and Seroquel was given to the patient and the dose adjusted and he tolerated the medicine. Physical exam of the patient showed no major medical problems. Also, blood workup was monitored closely, with no major abnormal labs. AFTER DISCHARGE PLANS: The patient's decided that she wants to take the patient back home and she did take the patient home with the plan for home health care and outpatient treatment. The patient was given appointment . EXPECTED OUTCOME AFTER DISCHARGE: Fair if the patient continues to take his psychotropic medications and follow up with discharge plans. JOB# [id number]
== END 2017-02-08 16:42 | disposition home health service (06) | DRG 885 ==
LOC: ER 21:26 → GERO 23:50
PROVIDERS: ADMIT Psychiatry & Neurology Psychiatry; ATTEND Psychiatry & Neurology Psychiatry
DX: F29 Unspecified psychosis not due to a substance or known physiological condition (principal); F03.91 Unspecified dementia, unspecified severity, with behavioral disturbance; I10 Essential (primary) hypertension; F39 Unspecified mood [affective] disorder; F41.9 Anxiety disorder, unspecified; I25.10 Atherosclerotic heart disease of native coronary artery without angina pectoris; E78.5 Hyperlipidemia, unspecified; M19.90 Unspecified osteoarthritis, unspecified site; H91.90 Unspecified hearing loss, unspecified ear; F32.9 Major depressive disorder, single episode, unspecified; Z88.0 Allergy status to penicillin; Z87.820 Personal history of traumatic brain injury
CPT/HCPCS: 36415-UA; 71010-TC; 72072-TC; 76857-TC; 80053-TC; 80061-TC; 84443-TC; 84484-TC; 85025-TC; 85610-TC; 85730-TC; 86592-TC; 93005; J1200; J1630; J2060; Z7610